=== PATIENT | male | born 1990 | race Caucasian/White ===

== ENCOUNTER 2017-09-08 23:42 | Emergency (ER) | payer BC ==
[2017-09-09] MEDS: ADACEL/BOOSTRIX VACCINE (DIPHTH/PERTUSS/ACELL/TETANUS)0.5ML SYR (90715) IM (00:45)
[2017-09-09] MEDS: LIDOCAINE 2% MDV 20 ML VIAL SC (00:45)
[2017-09-09] MEDS: AUGMENTIN 875 MG TAB PO (00:45)
[2017-09-09] MEDS: IBUPROFEN 800 MG TAB PO (01:30)
== END 2017-09-09 01:55 | disposition home or self-care (01) ==
LOC: M ED 23:42
DX: S60.351A Superficial foreign body of right thumb, initial encounter (principal); W26.8XXA Contact with other sharp object(s), not elsewhere classified, initial encounter; Y92.828 Other wilderness area as the place of occurrence of the external cause; F17.200 Nicotine dependence, unspecified, uncomplicated; Z79.899 Other long term (current) drug therapy
CPT/HCPCS: 90715